=== PATIENT | male | born 1990 | race Caucasian/White ===

== ENCOUNTER 2018-02-13 13:07 | Emergency (ER) | payer OTHER ==
[2018-02-13 14:34] VITALS: BP 148/71
[2018-02-13] MEDS ORDERED: Ibuprofen TAB* 600 MG PO ONE (14:57)
--- NOTE | 2018-02-13 15:00 | UC ---
Throat Pain/Nasal Arjun HPI - HPI Summary HPI Summary: 28-year-old male comes in with sinusitis infection symptoms and also generalized body aches and low back pain. Patient's been having runny nose yellow-green rhinorrhea and sinus pressure has gotten worse over the last 2 weeks. He's been having headaches intermittently which are more generalized headaches. The last couple of days he started with some joint aches in all of his joints. He also has been having low back pain just to the right of the lumbar spine that is worse with twisting and turning bending or moving or pushing on. He denies any dysuria or abdominal pain. His appetite is been decreased over the last couple of days. His neck is sore but it's similar soreness to the rest of his body. - History of Current Complaint Chief Complaint: UCRespiratory Stated Complaint: COUGH,BODY ACHES Time Seen by Provider: 02/13/18 14:44 Pain Intensity: 7 - Allergies/Home Medications Allergies/Adverse Reactions: Allergies Allergy/AdvReac Type Severity Reaction Status Date / Time No Known Allergies Allergy Verified 02/13/18 14:35 Home Medications: Home Medications Ibuprofen TAB* [Motrin TAB* 400 MG] 400 mg PO ONCE PRN 02/13/18 [History Confirmed 02/13/18] PMH/Surg Hx/FS Hx/Imm Hx Previously Healthy: Yes - Surgical History Surgical History: None - Family History Known Family History: Negative: Diabetes - Social History Alcohol Use: Daily Alcohol Amount: 4-6 Substance Use Type: None Smoking Status (MU): Heavy Every Day Tobacco Smoker Review of Systems Constitutional: Fatigue, Other - Generalized joint and body aches Skin: Negative Eyes: Negative ENT: Sore Throat, Nasal Discharge, Sinus Congestion, Sinus Pain/Tenderness Respiratory: Negative Cardiovascular: Negative Gastrointestinal: Nausea Genitourinary: Negative Motor: Negative, Decreased ROM Neurovascular: Negative Musculoskeletal: Arthralgia, Myalgia Neurological: Negative Psychological: Negative Is Patient Immunocompromised?: No All Other Systems Reviewed And Are Negative: Yes Physical Exam Triage Information Reviewed: Yes Appearance: Well-Nourished, Ill-Appearing - MILD, Pain Distress - MILD Vital Signs: Initial Vital Signs Temp 97.9 F 02/13/18 14:24 Pulse 103 02/13/18 14:24 Resp 20 02/13/18 14:24 BP 148/71 02/13/18 14:24 Pulse Ox 100 02/13/18 14:24 Vital Signs Reviewed: Yes Eye Exam: Normal Eyes: Positive: Conjunctiva Clear ENT: Positive: Pharyngeal erythema, Nasal congestion, TMs normal Neck exam: Normal Neck: Positive: Supple Respiratory: Positive: Lungs clear, Normal breath sounds, No respiratory distress Cardiovascular: Positive: Tachycardia Abdomen Description: Positive: Nontender, Soft Bowel Sounds: Positive: Present Musculoskeletal Exam: Normal Musculoskeletal: Positive: Strength Intact, ROM Intact Neurological Exam: Normal Neurological: Positive: Alert, Muscle Tone Normal, Fatigued Psychological Exam: Normal Psychological: Positive: Age Appropriate Behavior Skin Exam: Normal Throat Pain/Nasal Course/Dx - Course Course Of Treatment: Patient has symptoms consistent with sinusitis which is been going on for 2 weeks. This will treat him with Augmentin. The joint aches and the myalgias may or may not be due to the sinusitis. His rapid strep and influenza was negative here in clinic. His low back pain may be a strain or it may be part of his arthralgias. He has no neck stiffness he does not clinically have meningitis at this time. We discussed the signs and symptoms of meningitis. He denies any recent history of tick bites. Denies any dysuria. The plan at this time is to treat with Augmentin and use ibuprofen. We will check some blood worK. We ordered a CRP a CBC and CMP and a Lyme screen. All of this will results tomorrow. This was all discussed with the patient. Patient otherwise if he worsens he is to get evaluated in the emergency department. - Differential Dx/Diagnosis Provider Diagnoses: SINUSITIS. ARTHRALGIAS. MYALGIAS. LOW BACK PAIN Discharge - Sign-Out/Discharge Documenting (check all that apply): Patient Departure All imaging exams completed and their final reports reviewed: No Studies - Discharge Plan Condition: Stable Disposition: HOME Prescriptions: Amoxicillin/Clavulanate TAB* [Augmentin TAB 875*] 875 mg PO BID #20 tab Patient Education Materials: Sinusitis (ED), Arthralgia (ED), Musculoskeletal Pain (ED), Acute Low Back Pain (ED) Referrals: Maldonado Padron MD [Primary Care Provider] - Additional Instructions: FOLLOW UP WITH YOUR DOCTOR. GO TO THE EMERGENCY DEPARTMENT FOR ANY WORSENING OF YOUR CONDITION OR QUESTIONS OR CONCERNS. - Billing Disposition and Condition Condition: STABLE Disposition: Home
[2018-02-14 10:24] LABS: ABS Basophils 0 10^3/ul (0-0.2); ABS Eosinophils 0.1 10^3/ul (0-0.6); ABS Lymphocytes 0.5 10^3/ul (1.0-4.8); ABS Monocytes 0.8 10^3/ul (0-0.8); ABS Neutrophils 3.3 10^3/ul (1.5-7.7); ABS Nucleated RBC 0 10^3/ul; Eosinophil % 2.5 % (0-6); Hematocrit 45 % (42-52); Hemoglobin 15.6 g/dl (14.0-18.0); Lymphocyte % 10.4 % (25-47); Mean Corpuscular HGB Conc 34 g/dl (31-36); Mean Corpuscular Hemoglobin 31 pg (27-31); Mean Corpuscular Volume 91 fL (80-94); Mean Platelet Volume 8.9 um3 (7.4-10.4); Nucleated Red Blood Cells % 0.3; Platelet Count 209 10^3/ul (150-450); Red Blood Count 4.97 10^6/ul (4.00-5.40); Red Cell Distribution Width 13 % (10.5-15); White Blood Count 4.8 10^3/ul (3.5-10.8)
[2018-02-14 10:41] LABS: EGFR Non-African American 124.2 (>60)
== END 2018-02-13 16:32 | disposition home or self-care (01) ==
LOC: UCCORT 13:07
DX: F17.210 Nicotine dependence, cigarettes, uncomplicated (principal); J32.9 Chronic sinusitis, unspecified; M25.50 Pain in unspecified joint; M79.10 Myalgia, unspecified site; M54.5 Low back pain
CPT/HCPCS: 36415; 80053; 85025; 86140; 86618; 87651; 99202; A9270-GY; G0463